=== PATIENT | male | born 1955 | race Caucasian/White ===

== ENCOUNTER → 2017-07-16 | Outpatient (CLI) | payer MEDICARE, OTHER, MEDICAID ==
[2015-04-18 13:30] VITALS: BP 93/62
[~2017-07-16] MED LIST: INSU100I27 SQ; INSU200I SQ; LISI40TA PO; METF100010 PO; OXYC40TA21 PO; PITA4TAB2 PO; TAMS0.4C2 PO
== END | disposition home or self-care (01) ==
LOC: SURG 12:43
PROVIDERS: ATTEND Anesthesiology Pain Medicine
DX: M47.896 Other spondylosis, lumbar region (principal); J44.9 Chronic obstructive pulmonary disease, unspecified; I10 Essential (primary) hypertension; E11.9 Type 2 diabetes mellitus without complications
CPT/HCPCS: 99204